=== PATIENT | male | born 1995 | race Caucasian/White ===

== ENCOUNTER 2021-07-14 10:29 | Day surgery (SDC) | payer BC ==
[2021-07-10 16:24] LABS: Absolute Lymphocytes (CBC) 1.4 K/uL (0.7-4.9); Basophils % 0.6 % (0-1.3); Hematocrit 42.7 % (39.6-49.0); Lymphocytes % 20.4 % (15.3-44.8); MPV 8.2 fL (7.6-11.3); RBC Red Blood Cell Count 5.36 M/uL (4.33-5.43)
[2021-07-10 16:28] LABS: Protime INR 0.98
[2021-07-10 16:37] LABS: BUN Blood Urea Nitrogen 11 mg/dL (7-18); Bicarbonate 27 mmol/L (21-32); Glucose Level 95 mg/dL (74-106); Potassium 3.8 mmol/L (3.5-5.1); Sodium Level 140 mmol/L (136-145)
[2021-07-14] MEDS ORDERED: Ringers Lactate 1,000 ML IV ONE (10:56)
[2021-07-14] MEDS ORDERED: CELECOXIB 100 MG CAPSULE PO ONE (14:00)
[2021-07-14] MEDS ORDERED: ACETAMINOPHEN 500 MG TAB PO ONE (14:00)
[2021-07-14] MEDS ORDERED: ACETAMINOPHEN 500 MG TAB ONE (14:06)
[2021-07-14] MEDS ORDERED: CELECOXIB 100 MG CAPSULE ONE (14:06)
[2021-07-14] MEDS: CEFAZOLIN/SWI 2gm 2 GM/20 ML SYR ONE ×3 (15:00→15:32)
[2021-07-14] MEDS ORDERED: MIDAZOLAM HCL 2 MG/2 ML INJ ONE (15:19)
[2021-07-14] MEDS ORDERED: propofoL 200 MG/20 ML VIAL IV ONE (15:20)
[2021-07-14] MEDS ORDERED: FENTANYL CITR 100 MCG/2 ML ONE ×2 (15:20→15:53)
[2021-07-14] MEDS ORDERED: LIDOCAINE 1% MPF 5 ML VIAL ONE (15:20)
[2021-07-14] MEDS ORDERED: ONDANSETRON 4 MG/2 ML VIAL ONE (15:42)
[2021-07-14] MEDS ORDERED: dexAMETHasone 10 MG/ML VIAL ONE ×2 (15:42→15:54)
[2021-07-14] MEDS ORDERED: KETOROLAC 30 MG/ML INJ ONE (15:42)
[2021-07-14] MEDS: TRIAMCINOLONE ACETON 40 MG/ML VIAL ONE ×2 (16:02→16:27)
[2021-07-14] MEDS ORDERED: CODEINE 30MG/APAP 300MG TAB PO PRN (17:15)
[2021-07-14] MEDS ORDERED: CODEINE 30MG/APAP 300MG TAB ONE (18:18)
--- NOTE | 2021-07-14 18:34 | RAD REPORT ---
EXAM DESCRIPTION: RAD - Cystography - 07/14/2021 4:05 pm CLINICAL HISTORY: CYSTO COMPARISON: No comparisons FINDINGS/IMPRESSION: Intraoperative fluoroscopic images from a retrograde urethrogram. There is an a pproximately 18 mm in length stricture at the level of the bulbar urethra. Contrast can be seen enter ing the bladder. Fluoro time: 15 seconds
[2021-07-14 19:14] VITALS: BP 134/78; TEMP 97.4; O2SAT 100
--- NOTE | 2021-07-14 21:35 | OP ---
Surgeon: ONDINA HILLMAN Preoperative Diagnoses: 1. Occlusive urethral stricture disease. 2. Obstructive lower urinary tract symptoms with incomplete bladder emptying. Postoperative Diagnoses: 1. Occlusive urethral stricture disease. 2. Obstructive lower urinary tract symptoms with incomplete bladder emptying. Principal Procedure: 1. Retrograde urethrogram. 2. Urethroscopy. 3. Dilation of urethra over a wire using sequential dilators. 4. Direct vision internal urethrotomy. 5. Injection of intralesional Kenalog 80 mg. 6. Complex placement of a Crowley catheter over a wire. Indication For Procedure: Mr. Galaviz is a 26-year-old gentleman who presented to [facility] with severe bothersome urinary symptoms with incomplete bladder emptying. He has a history of kidney stones and has had issues with dysuria as well, and after cystoscopy as an outpatient revealed the presence of an occlusive urethral stricture, he was counseled about the need for operative management. I also counseled him that we would perform a retrograde urethrogram first to define the length of the stricture and the extent to determine whether it was appropriate to attempt a DVIU. However, given how severe his symptoms are at baseline with incomplete emptying, we will need to do something to assist in emptying his bladder. Procedure In Detail: The patient was consented in the preoperative holding area before being transferred to the operative suite where general anesthesia was induced. He was given Ancef 2 g IV antimicrobial prophylaxis and pneumo boots were provided for DVT prophylaxis. He was placed supine and then a bump was placed beneath his right hip and flank in order to allow bending of his left knee to expose the pelvis and the urethra for the purposes of retrograde urethrogram. Then using fluoroscopic imagery, a 16-Eritrean urethral Crowley catheter tip was placed into the meatus and fossa navicularis and approximately 2 cc of sterile water was inserted into the balloon to hold it in place. I then injected using a 60 cc catheter tip syringe, a 70:30 mixture of Omnipaque and saline into the urethra with fluoroscopic imagery along the way. The urethra did delineate throughout the majority of the distal urethra, but in the perineal urethra, there was a very irregular area of narrowed urethral lumen with wispy contrast going between. The radiologist eventually measured it at 16 mm or 1.6 cm stricture. The urethral lumen did fill normally after that and entered via the prostatic urethra into the bladder as expected. I then placed the patient in the lithotomy position using the Yellofin stirrups, padded and secured him to the table appropriately. His genitalia were prepped using Hibiclens and draped in standard fashion. The case was then begun using the 22-Eritrean rigid cystoscope to try to enter the urethra. 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 I was then able to traverse the urethra and visualized the stricture, which was again pinpoint in nature. Attempting to use the urethrotome and the cold knife to open this was aborted due to the very narrow opening, so I passed a Bentson guidewire via the opening and coiled it within his bladder. I then utilized Amplatz urethral dilators to sequentially dilate the stricture to 20- Eritrean. I then again replaced the urethrotome and visualized the opening. Then using the cold knife, I incised the strictured region at the 12 o'clock point and then also at the 5 and the 7 o'clock point until healthy bleeding tissue was visualized. Once the entirety of the length of the stricture had been incised, I was able to reach normal tissue within the bulb, but there was only approximately 2 or 3 cm before the sphincter was encountered. I then traversed the prostatic urethra and into the bladder with ease. I decompressed his bladder of several 100 cc of old smelling urine. I then surveyed his bladder in its entirety, and there were no mucosal lesions, foreign bodies, or stones noted throughout. The ureteral orifices were orthotopic in location. The urine was clear. I thus backed the cystoscope into the urethra and again surveyed the area that had been incised. An additional incision was made where necessary to ensure adequate patency of the entirety of the strictured region of the urethra. I then utilized an endoscopic injector needle and injected 80 mg of Kenalog in a mixture of 6 cc of normal saline. This was injected at each point, in fact 3 points, along the length of the stricture, both in the dorsal 12 o'clock as well as the 5 and 7 o'clock positions. Once this was done, a Bentson guidewire was again passed into his bladder, and I passed a 20-Eritrean Councill tip catheter over the Bentson guidewire into the bladder with ease. I placed 15 cc of sterile water in the balloon and connected the catheter to a floor bag. The patient was then taken out of the lithotomy position, awakened from general anesthesia, transferred to a stretcher, and then to the recovery room in good condition. Complications: None. Discharge Disposition: He should follow up in the Urology Clinic in 7 to 14 days for catheter removal and voiding trial. He will be discharged with a daily prescription for Bactrim Double Strength tablets if he has no allergies to the medication while the urethra has an opportunity to heal. GABRIEL/SHAYNA Voice ID: [id number] Report ID: [id number] MTDD
== END 2021-07-14 19:05 | disposition home or self-care (01) ==
LOC: OR 10:29
PROVIDERS: ATTEND Urology
PROC: 3E0K83Z Introduction of Anti-inflammatory into Genitourinary Tract, Via Natural or Artificial Opening Endoscopic (ICD-10-PCS; 2021-07-14)
PROC: 0T9B70Z Drainage of Bladder with Drainage Device, Via Natural or Artificial Opening (ICD-10-PCS; 2021-07-14)
PROC: 0T7D8ZZ Dilation of Urethra, Via Natural or Artificial Opening Endoscopic (ICD-10-PCS; principal; 2021-07-14 13:00)
DX: N35.914 Unspecified anterior urethral stricture, male (principal); R31.0 Gross hematuria; R33.9 Retention of urine, unspecified; Z20.822 Contact with and (suspected) exposure to COVID-19
CPT/HCPCS: 93005; 85025; 87086; 80048; 36415; 85610; 85730; 51600; 74430; 52276; 52283; 51702; U0003; J2704; J3301; J2250; J3010 ×2; J1100 ×2; J0690; J7120; J2405; 87088